=== PATIENT | female | born 2000 | race Two or more races ===

== ENCOUNTER 2019-02-16 20:24 | Emergency (ER) | payer OTHER ==
--- NOTE | 2019-02-16 21:12 | EDM.PDOC ---
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 She thinks this has been there since Tuesday. She is having some dysuria, vaginal discharge and an odor. She has no fever, chills, abdominal or pelvic pain. Onset: Gradual Duration: Day(s): Severity: Mild Improves with: Reports: None Worsens with: Reports: None Associated Symptoms: Denies: Chest Pain, Cough, Fever/Chills, Headaches, Nausea/ Vomiting, Shortness of Breath - Related Data Allergies Allergy/AdvReac Type Severity Reaction Status Date / Time No Known Allergies Allergy Verified 02/16/19 20:35 Home Meds: Home Meds . [No Known Home Meds] 02/16/19 [History] Past Medical History - Past Health History Medical/Surgical History: Denies Medical/Surgical History Social & Family History - Tobacco Use Smoking Status *Q: Never Smoker Second Hand Smoke Exposure: No - Caffeine Use Caffeine Use: Reports: Coffee, Energy Drinks, Soda, Tea - Recreational Drug Use Recreational Drug Use: No ED ROS GENERAL - Review of Systems Review Of Systems: See Below Constitutional: Reports: No Symptoms HEENT: Reports: No Symptoms Respiratory: Reports: No Symptoms Cardiovascular: Reports: No Symptoms Endocrine: Reports: No Symptoms GI/Abdominal: Reports: No Symptoms : Reports: Dysuria Musculoskeletal: Reports: No Symptoms Skin: Reports: No Symptoms ED EXAM, RENAL/ - Physical Exam Exam: See Below Exam Limited By: No Limitations General Appearance: Alert, No Apparent Distress Ears: Normal External Exam Nose: Normal Inspection Head: Atraumatic, Normocephalic Neck: Normal Inspection Respiratory/Chest: No Respiratory Distress, Lungs Clear, Normal Breath Sounds Cardiovascular: Regular Rate, Rhythm, No Edema, No Murmur GI/Abdominal: Soft, Non-Tender, No Organomegaly, No Mass (Female) Exam: Normal External Exam, Other (Tampon is found and removed intact) Course - Vital Signs Last Recorded V/S: Last Vital Signs Temp 97.8 F 02/16/19 20:34 Pulse 73 02/16/19 20:34 Resp 15 02/16/19 20:34 BP 111/69 02/16/19 20:34 Pulse Ox 100 02/16/19 20:34 - Orders/Labs/Meds Orders: Active Orders 24 hr Category Date Time Status Vaginal Exam [RC] PRN Care 02/16/19 20:50 Active Labs: Laboratory Tests 02/16/19 Range/Units 20:58 Urine Color Yellow (Yellow) Urine Appearance Slt cloudy H (Clear) Urine pH 6.0 (5.0-8.0) Ur Specific [place] > or = 1.030 (1.005-1.030) Urine Protein Trace H (Negative) Urine Glucose (UA) Negative (Negative) Urine Ketones Trace H (Negative) Urine Occult Blood Trace-lysed H (Negative) Urine Nitrite Negative (Negative) Urine Bilirubin Negative (Negative) Urine Urobilinogen 0.2 (0.2-1.0) Ur Leukocyte Esterase Negative (Negative) Urine RBC 5-10 H (0-5) /hpf Urine WBC 5-10 H (0-5) /hpf Ur Squamous Epith Cells 5-10 H (0-5) /hpf Urine Bacteria Few (FEW) /hpf Urine Mucus Moderate H (FEW) /hpf Meds: Medications Discontinued Medications Generic Name Dose Route Start Last Admin Trade Name Freq PRN Reason Stop Dose Admin Al Hydroxide/Mg Hydroxide 30 0 ml 02/16/19 21:16 02/16/19 21:20 ml/ Lidocaine HCl 15 ml PO 02/16/19 21:17 Not Given ONETIME ONE Famotidine 20 mg 02/16/19 21:16 02/16/19 21:20 Pepcid IVPUSH 02/16/19 21:17 Not Given ONETIME ONE - Re-Assessments/Exams Free Text/Narrative Re-Assessment/Exam: 02/16/19 21:11 I have ordered a UA and I found the tampon and removed it intact. 02/16/19 21:41 Her UA shows no UTI. No antibiotics are needed. I will discharge her home. Departure - Departure Time of Disposition: 21:45 Disposition: Home, Self-Care 01 Condition: Good Clinical Impression: Retained tampon Qualifiers: Encounter type: initial encounter Qualified Code(s): T19.2XXA - Foreign body in vulva and vagina, initial encounter - Discharge Information *PRESCRIPTION DRUG MONITORING PROGRAM REVIEWED*: No *COPY OF PRESCRIPTION DRUG MONITORING REPORT IN PATIENT MIRNA: No Referrals: PCP,None [Primary Care Provider] - Forms: ED Department Discharge Additional Instructions: Drink plenty of fluids. Please return if you have more discharge, pain, fever or chills. - My Orders Last 24 Hours: My Active Orders 02/16/19 20:50 Vaginal Exam [RC] PRN - Assessment/Plan Last 24 Hours: My Active Orders 02/16/19 20:50 Vaginal Exam [RC] PRN
[2019-02-16] MEDS ORDERED: Alum Hydrox/Mag Hydrox/Simeth 30 ML, Lidocaine 2% 15 ML PO ONE ×2 (21:16)
[2019-02-16] MEDS ORDERED: Famotidine 20 MG/2 ML SDV IVPUSH ONE (21:16)
== END 2019-02-16 21:47 | disposition home or self-care (01) ==
LOC: JD.ED 20:24
DX: T19.2XXA Foreign body in vulva and vagina, initial encounter (principal)
CPT/HCPCS: 81001; 99283